=== PATIENT | female | born 1980 | race Two or more races ===

== ENCOUNTER 2016-12-23 13:26 | Emergency (ER) | payer MEDICAID ==
[~2016-12-23] VITALS: Ht 172.7 cm; Wt 69.4 kg
[2016-12-23 13:26] VITALS: BP 115/71
== END 2016-12-23 14:04 | disposition home or self-care (01) ==
LOC: ER 13:29
DX: J34.0 Abscess, furuncle and carbuncle of nose (principal); J00 Acute nasopharyngitis [common cold]
CPT/HCPCS: 99283; A4606; Z7610